=== PATIENT | female | born 1980 | race American Indian/Alaskan Native ===

== ENCOUNTER 2020-05-04 07:59 | Emergency (ER) | payer MEDICAID ==
[2020-05-04 08:07] VITALS: BP 125/82; PULSE 105
--- NOTE | 2020-05-04 08:22 | EDM.PDOC ---
ED HPI GENERAL MEDICAL PROBLEM - General Chief Complaint: Allergic Reaction Stated Complaint: ALLERGIC REACTION ON SKIN ENTIRE BODY Time Seen by Provider: 05/04/20 08:22 Source of Information: Reports: Patient, RN, RN Notes Reviewed History Limitations: Reports: No Limitations - History of Present Illness INITIAL COMMENTS - FREE TEXT/NARRATIVE: Patient is a 39-year-old female who presents to ER with complaint of itching all over the body, hives that began last evening. Patient states she was unable to sleep because of the itching which has progressively gotten worse. Patient states hives on her back, neck, chest. Denies any swelling of her tongue or difficulty breathing or swallowing. Patient states she did try some lotion of her daughters last night, but otherwise denies any new medications, foods, laundry detergents. Patient denies any other allergies. Onset: Sudden Onset Date: 05/03/20 - Related Data Allergies Allergy/AdvReac Type Severity Reaction Status Date / Time No Known Allergies Allergy Verified 03/09/18 18:04 Home Meds: Home Meds . [No Known Home Meds] 01/19/16 [History] Past Medical History - Past Health History Medical/Surgical History: Denies Medical/Surgical History HEENT History: Reports: None Cardiovascular History: Reports: None Respiratory History: Reports: None Gastrointestinal History: Reports: None Genitourinary History: Reports: None [employer] History: Reports: Musculoskeletal History: Other Musculoskeletal History: History of dislocation left shoulder. Cold weather makes left arm ache. Fx L) ft now. Neurological History: Reports: None Psychiatric History: Reports: Addiction, Depression, Emotional Problems, Mood Swings, Suicidal Ideation, Other (See Below) Endocrine/Metabolic History: Reports: None Hematologic History: Reports: None Immunologic History: Reports: None Oncologic (Cancer) History: Reports: None Dermatologic History: Reports: Angiodema - Infectious Disease History Infectious Disease History: Reports: Chicken Pox - Past Surgical History Female Surgical History: Reports: Tubal Ligation Social & Family History - Family History Family Medical History: No Pertinent Family History - Caffeine Use Caffeine Use: Reports: Coffee, Energy Drinks, Soda - Sexual History Sexual History: Reports: Multiple Partners, Sexually Active - Living Situation & Occupation Living situation: Reports: with Family Occupation: Unemployed ED ROS ALLERGIC REACTION - Review of Systems Review Of Systems: Comprehensive ROS is negative, except as noted in HPI. ED EXAM GENERAL NO PERIP PULSE - Physical Exam Exam: See Below Exam Limited By: No Limitations General Appearance: Alert, WD/WN, Anxious, Moderate Distress Eye Exam: Bilateral Eye: EOMI, Normal Inspection Ears: Normal External Exam, Hearing Grossly Normal Nose: Normal Inspection, Normal Mucosa, No Blood Throat/Mouth: Normal Inspection, Normal Lips, Normal Teeth, Normal Gums, Normal Oropharynx, Normal Voice, No Airway Compromise Head: Atraumatic, Normocephalic Neck: Normal Inspection, Supple, Non-Tender, Full Range of Motion Respiratory/Chest: No Respiratory Distress, Lungs Clear, Normal Breath Sounds, No Accessory Muscle Use, Chest Non-Tender Cardiovascular: Normal Peripheral Pulses, Regular Rate, Rhythm, No Edema, No Gallop, No JVD, No Murmur, No Rub GI/Abdominal: Normal Bowel Sounds, Soft, Non-Tender, No Organomegaly, No Distention, No Abnormal Bruit, No Mass (Female) Exam: Deferred Rectal (Female) Exam: Deferred Back Exam: Normal Inspection, Full Range of Motion, NT Extremities: Normal Inspection, Normal Range of Motion, Non-Tender, Normal Capillary Refill, No Pedal Edema Neurological: Alert, Oriented, CN II-XII Intact, Normal Cognition, Normal Gait, Normal Reflexes, No Motor/Sensory Deficits Psychiatric: Normal Affect, Normal Mood, Anxious Skin Exam: Warm, Dry, Erythema, Excoriations, Rash, Other (hives to the back and chest, neck) Lymphatic: No Adenopathy Course - Vital Signs Last Recorded V/S: Last Vital Signs Temp 97.4 F 05/04/20 08:06 Pulse 105 H 05/04/20 08:06 Resp 20 05/04/20 08:06 BP 125/82 05/04/20 08:06 Pulse Ox 100 05/04/20 08:06 - Orders/Labs/Meds Meds: Medications Discontinued Medications Generic Name Dose Route Start Last Admin Trade Name Josefq PRN Reason Stop Dose Admin Diphenhydramine HCl 50 mg 05/04/20 08:28 05/04/20 08:37 Benadryl PO 05/04/20 08:29 50 mg ONETIME ONE Administration Triamcinolone Acetonide 40 mg 05/04/20 08:28 05/04/20 08:37 Kenalog-40 INJECT 05/04/20 08:29 40 mg ONETIME ONE Administration Departure - Departure Time of Disposition: 08:50 Disposition: Home, Self-Care 01 Condition: Good Clinical Impression: Contact dermatitis Qualifiers: Contact dermatitis type: unspecified Contact dermatitis trigger: unspecified trigger Qualified Code(s): L25.9 - Unspecified contact dermatitis, unspecified cause - Discharge Information *PRESCRIPTION DRUG MONITORING PROGRAM REVIEWED*: No *COPY OF PRESCRIPTION DRUG MONITORING REPORT IN PATIENT HUNG: No Instructions: Contact Dermatitis, [id number] Forms: ED Department Discharge Additional Instructions: May use over the counter hydrocortisone cream to the area as directed May use Benadryl over the counter as directed for itching Follow up with your primary care facility if no improvement Return to ER with any worsening of symptoms, difficulty breathing Sepsis Event Note (ED) - Evaluation Sepsis Screening Result: No Definite Risk - Focused Exam Vital Signs: Vital Signs Temp Pulse Resp BP Pulse Ox 05/04/20 08:06 97.4 F 105 H 20 125/82 100
[2020-05-04] MEDS ORDERED: diphenhydrAMINE 50 MG Cap PO ONE (08:28)
[2020-05-04] MEDS ORDERED: Triamcinolone Acetonide 40 MG/ML 1 ML SDV INJECT ONE (08:28)
== END 2020-05-04 08:50 | disposition home or self-care (01) ==
LOC: DL.ED 07:59
DX: L25.9 Unspecified contact dermatitis, unspecified cause (principal)
CPT/HCPCS: 99282; J3301; Q0163; 99283